=== PATIENT | male | born 1975 | race Caucasian/White ===

== ENCOUNTER 2020-08-07 19:03 | Emergency (ER) | payer BC ==
[~2020-08-07] VITALS: Ht 185.4 cm; Wt 77.1 kg
[2020-08-07 19:52] VITALS: BP 156/86
== END 2020-08-07 20:30 | disposition left against medical advice (07) ==
LOC: ER 19:03
DX: S01.91XA Laceration without foreign body of unspecified part of head, initial encounter (principal); F10.920 Alcohol use, unspecified with intoxication, uncomplicated; X58.XXXA Exposure to other specified factors, initial encounter; Y93.89 Activity, other specified; Y92.89 Other specified places as the place of occurrence of the external cause; Y99.8 Other external cause status